=== PATIENT | male | born 1995 | race Caucasian/White ===

== ENCOUNTER 2022-06-08 11:19 | Emergency (ER) | payer BC ==
--- OUTSIDE RECORDS SUMMARY | 2022-06-08 11:23 | XMS REPORT | Continuity of Care Document ---
:[address] [facility] t Address [address] [facility] [address] [place] [address] Care Team Providers Name Role Phone DELORES CARO Primary Care Physician Unavailable DELORES CARO Attending Clinician Unavailable ADALI SHABAZZ Attending Clinician Unavailable JOHN MUHAMMAD Attending Clinician Unavailable John Muhammad MD Attending Clinician Delores Andrews Attending Clinician Lab, Ang - Db Attending Clinician Unavailable Doctor Unassigned, [place] Attending Clinician Unavailable Sandy KELLER Attending Clinician Unavailable Sandy Clifford Attending Clinician Payers Payer Name Policy Type Policy Number Effective Date Expiration Date S [facility] - [id number] 2021 00:00:00 OUT OF STATE Problems Condition Condition Condition Status Onset Resolution Last Treating Co mments Source Name Details Category Date Date Treatment Clinician Date Vitamin D Vitamin D Disease Active Uni vers deficiency deficiency 1-25 it y of 00:00: [address] History of History of Disease Active U nivers pilonidal pilonidal 5-30 ity of cyst cyst 00:00: [address] Leukocytos Leukocytos Disease Active U nivers is is 5-30 ity of 00:00: [address] Obesity Obesity Disease Recurre Univer s nce 5-30 ity of 00:00: [place] 00 [facility] Seasonal Seasonal Disease Active Unive rs allergies allergies ity of [place] [facility] Allergies, Adverse Reactions, Alerts Allergy Allergy Status Severity Reaction(s) Onset Inactive Treating Comm ents Source Name Type Date Date Clinician FENTANYL DRUG Active N/V Univers INGREDI 4- ity of 00:00: [place] 00 [facility] [place] Fentanyl Propensi Active Nausea Univer s ty to and/or 06-06 ity of adverse Vomiting 00:00: [place] reaction 00 Medical s Branch NO KNOWN Drug Active Univers ALLERGIE Class ity of S [facility] Social History Social Habit Start Date Stop Date Quantity Comments Source History of tobacco Cigarette Smoker University of use [place] [facility] Alcohol intake 2022-06-06 2022-06-06 0 /d University of 00:00:00 00:00:00 [facility] Exposure to 2022-03-22 2022-04-01 Not sure [facility] SARS-CoV-2 (event) 00:00:00 08:01:00 [facility] Tobacco use and 2022-03-04 2022-03-04 Smokeless Universit y of exposure 00:00:00 00:00:00 tobacco non-user [facility] dical [place] Tobacco Comment 2022-03-04 2022-03-04 Switching from [facility] rsity of 00:00:00 00:00:00 cigaret to [facility] vaping Branch Cigarettes smoked 2022-03-04 2022-03-04 Univers ity of current (pack per 00:00:00 00:00:00 ) - Reported Branch Cigarette 2022-03-04 2022-03-04 University of pack-years 00:00:00 00:00:00 [facility] Alcohol Comment 2016-11-02 2016-11-02 occasional/ once Uni versity of 00:00:00 00:00:00 a month [facility] Sex Ass[birth year] At [birth year] Universit y of 00:00:00 00:00:00 [facility] Smoking Status Start Date Stop Date Source Smokes tobacco daily 2022-03-04 00:00:00 Univers ity of [facility] Occasional tobacco smoker 2016-11-02 00:00:00 Un iversity of [place] [facility] Medications Ordered Filled Start Stop Current Ordering Indication Dosage Frequency Signature Comments Components Source Medication Medication Date Date Medication? Clinician (SIG) Name Name iopamidol 2022- No [id number] 90mL 90 mL, Univers (ISOVUE 06-06 Intravenou ity o f 370-500 mL) 19:10: 19:30 s, ONCE, 1 [place] injection 00 :00 dose, On Medica l 90 mL Sat Branch 06/06/22 at 1430, Routine maalox:diph 2022- No 15mL 15 mL, Uni vers enhydrAMINE 06-06 Oral, ity of :lidocaine 19:00: 18:59 ONCE, 1 [place] as 2 % viscous 00 :00 dose, On Medi gerard 1:1:1 Sat Branch ([facility] 06/06/22 at [facility]) 1400, oral Routine suspension 15 mL pantoprazol Yes [id number] 40mg Take 1 Univers e 4-29 tablet by ity of (PROTONIX) 00:00: mouth in [place] as 40 mg EC 00 the Medical tablet morning. Branch traMADoL Yes [id number] 50mg Take 1 Univers (ULTRAM) 50 4-29 tablet by ity of mg tablet 00:00: mouth [place] 00 every 6 Medical (six) Branch hours as needed for Pain (scale 7-10). Indication s: acute pain SERTraline Yes [id number] Take 1 tab Univers (ZOLOFT) 50 2-22 po daily ity of mg tablet 00:00: [place] 00 Medical Branch SERTraline Yes [id number] Take 1 tab Univers (ZOLOFT) 50 2-22 po daily ity of mg tablet 00:00: [place] 00 Medical Branch SERTraline Yes [id number] Take 1 tab Univers (ZOLOFT) 50 2-22 po daily ity of mg tablet 00:00: [place] [facility] SERTraline Yes [id number] Take 1/2 Univers (ZOLOFT) 50 1-25 tab po ity of mg tablet 00:00: daily x 1 [place] 00 week. Then Medical go to 1 Branch tab po daily. Avoid abrupt cessation. SERTraline Yes [id number] Take 1/2 Univers (ZOLOFT) 50 1-25 tab po ity of mg tablet 00:00: daily x 1 [place] 00 week. Then Medical go to 1 Branch tab po daily. Avoid abrupt cessation. SERTraline Yes [id number] Take 1/2 Univers (ZOLOFT) 50 1-25 tab po ity of mg tablet 00:00: daily x 1 [place] 00 week. Then Medical go to 1 Branch tab po daily. Avoid abrupt cessation. SERTraline 2022- No [id number] Take 1/2 Univers (ZOLOFT) 50 -04 04-22 tab po ity o f mg tablet 00:00: 00:00 [place] 1 [place] week. Then Medical go to 1 Branch tab po daily. Avoid abrupt cessation. SERTraline 2022- No [id number] Take 1/2 Univers (ZOLOFT) 50 -04 04- tab po ity o f mg tablet 00:00: 00:00 [place] x 1 [place] :[place] week. Then Medical go to 1 Branch tab po daily. Avoid abrupt cessation. cefdinir 2021-02- No [id number] 300mg Take 1 U nivers 300 mg 02-14 11-15 capsule by ity of capsule 00:00: 05:59 mouth [place] 00 :00 every 12 Medical (twelve) Branch hours for 7 days. sulfamethox 2017-02 Yes 1{tbl} Take 1 Un [place] azole-trime 0-30 tablet by ity of thoprim 00:00: mouth [place] 800-160 mg 00 every 12 Medic al per tablet (twelve) Branc h hours. clindamycin 2017-02 Yes 300mg Take 1 Uni vers 300 mg 0-30 capsule by ity of capsule 00:00: mouth 4 [place] 00 (four) Medical times Branch daily. acetaminoph 2017-02 Yes 1{tbl} Take 1 Un [place] en-codeine 0-30 tablet by ity of 300-30 mg 00:00: mouth [place] tablet 00 every 4 Medical (four) Branch hours as needed for Pain (scale 4-6). sulfamethox 2017-02 Yes 1{tbl} Take 1 Un [place] azole-trime 0-30 tablet by ity of thoprim 00:00: mouth [place] 800-160 mg 00 every 12 Medic al per tablet (twelve) Branc h hours. clindamycin 2017-02 Yes 300mg Take 1 Uni vers 300 mg 0-30 capsule by ity of capsule 00:00: mouth 4 [place] 00 (four) Medical times Branch daily. acetaminoph 2017-02 Yes 1{tbl} Take 1 Un [place] en-codeine 0-30 tablet by ity of 300-30 mg 00:00: mouth [place] tablet 00 every 4 Medical (four) Branch hours as needed for Pain (scale 4-6). acetaminoph 2017-02- No 1{tbl} Take 1 U nivers en-codeine 0-30 01-25 tablet by ity of 300-30 mg 00:00: 00:00 mouth [place] tablet 00 :00 every 4 Medical (four) Branch hours as needed for Pain (scale 4-6). sulfamethox 2017-02- No 1{tbl} Take 1 U nivers azole-trime 0-30 01-25 tablet by it y of thoprim 00:00: 00:00 mouth [place] 800-160 mg 00 :00 every 12 Medic al per tablet (twelve) Branc h hours. clindamycin 2017-02- No 300mg Take 1 Un [place] 300 mg 0-30 01-25 capsule by ity of capsule 00:00: 00:00 mouth 4 [place] 00 :00 (four) Medical times Branch daily. acetaminoph 2017-02- No 1{tbl} Take 1 U nivers en-codeine 0-30 01-25 tablet by ity of 300-30 mg 00:00: 00:00 mouth [place] tablet 00 :00 every 4 Medical (four) Branch hours as needed for Pain (scale 4-6). sulfamethox 2017-02- No 1{tbl} Take 1 U nivers azole-trime 0-30 01-25 tablet by it y of thoprim 00:00: 00:00 mouth [place] 800-160 mg 00 :00 every 12 Medic al per tablet (twelve) Branc h hours. clindamycin 2017-02- No 300mg Take 1 Un [place] 300 mg 0-30 01-25 capsule by ity of capsule 00:00: 00:00 mouth 4 [place] 00 :00 (four) Medical times Branch daily. albuterol 2016-02 Yes 2{puff} Inhale 2 U nivers 90 2-06 Puffs ity of mcg/actuati 00:00: every 4 [place] as on inhaler 00 (four) Medical hours as Branch needed for Wheezing, Shortness of Breath, Bronchospa sm or Chest tightness. albuterol 2016-02 Yes 2{puff} Inhale 2 U nivers 90 2-06 Puffs ity of mcg/actuati 00:00: every 4 [place] on inhaler 00 (four) Medical hours as Branch needed for Wheezing, Shortness of Breath, Bronchospa sm or Chest tightness. benzonatate 2016-02 Yes 200mg Take 1 Uni vers 200 mg 2-06 capsule by ity of capsule 00:00: mouth 3 (three) Medical times Branch daily as needed for Cough. albuterol 2016-02 Yes 2{puff} Inhale 2 U nivers 90 2-06 Puffs ity of mcg/actuati 00:00: every 4 [place] on inhaler 00 (four) Medical hours as Branch needed for Wheezing, Shortness of Breath, Bronchospa sm or Chest tightness. benzonatate 2016-02 Yes 200mg Take 1 Uni vers 200 mg 2-06 capsule by ity of capsule 00:00: mouth 3 (three) Medical times Branch daily as needed for Cough. albuterol 2016-02 Yes 2{puff} Inhale 2 U nivers 90 2-06 Puffs ity of mcg/actuati 00:00: every 4 [place] on inhaler 00 (four) Medical hours as Branch needed for Wheezing, Shortness of Breath, Bronchospa sm or Chest tightness. albuterol 2016-02 Yes 2{puff} Inhale 2 U nivers 90 2-06 Puffs ity of mcg/actuati 00:00: every 4 [place] on inhaler 00 (four) Medical hours as Branch needed for Wheezing, Shortness of Breath, Bronchospa sm or Chest tightness. albuterol 2016-02 Yes 2{puff} Inhale 2 U nivers 90 2-06 Puffs ity of mcg/actuati 00:00: every 4 [place] on inhaler 00 (four) Medical hours as Branch needed for Wheezing, Shortness of Breath, Bronchospa sm or Chest tightness. albuterol 2016-02 Yes 2{puff} Inhale 2 U nivers 90 2-06 Puffs ity of mcg/actuati 00:00: every 4 [place] on inhaler 00 (four) Medical hours as Branch needed for Wheezing, Shortness of Breath, Bronchospa sm or Chest tightness. albuterol 2016-02 Yes 2{puff} Inhale 2 U nivers 90 2-06 Puffs ity of mcg/actuati 00:00: every 4 [place] as on inhaler 00 (four) Medical hours as Branch needed for Wheezing, Shortness of Breath, Bronchospa sm or Chest tightness. benzonatate 2016-02- No 200mg Take 1 Un [place] 200 mg 03-16 capsule by ity of capsule 00:00: 00:00 mouth 3 [place] 00 :00 (three) Medical times Branch daily as needed for Cough. benzonatate 2016-02 No 200mg Take 1 Un [place] 200 mg 03-16 capsule by ity of capsule 00:00: 00:00 mouth 3 [place] 00 :00 (three) Medical times Branch daily as needed for Cough. Immunizations Ordered Filled Immunization Date Status Comments [facility] e Immunization Name Name TDAP 2020-10-21 Completed University of 00:00:00 [facility] TDAP 2020-10-21 Completed University of 00:00:00 [facility] TDAP 2020-10-21 Completed University of 00:00:00 [facility] TDAP 2020-10-21 Completed University of 00:00:00 [facility] TDAP 2020-10-21 Completed University of 00:00:00 [facility] TDAP 2020-10-21 Completed University of 00:00:00 [facility] Influenza Virus 2016-11-02 Completed Universit y of Vaccine Quad IM 00:00:00 [place] Med ical Multi-dose 6+ MO Branch Influenza Virus 2016-11-02 Completed Universit y of Vaccine [place] IM 00:00:00 [place] Med ical Multi-dose 6+ MO Branch Influenza Virus 2016-11-02 Completed Universit y of Vaccine [place] IM 00:00:00 [place] Med ical Multi-dose 6+ MO Branch Influenza Virus 2016-11-02 Completed Universit y of Vaccine [place] IM 00:00:00 [place] Med ical Multi-dose 6+ MO Branch Influenza Virus 2016-11-02 Completed Universit y of Vaccine [place] IM 00:00:00 [place] Med ical Multi-dose 6+ MO Branch Influenza Virus 2016-11-02 Completed Universit y of Vaccine [place] IM 00:00:00 [place] Med ical Multi-dose 6+ MO Branch Influenza Virus 2016-11-02 Completed Universit y of Vaccine [place] IM 00:00:00 [place] Med ical Multi-dose 6+ MO Branch Influenza Virus 2016-11-02 Completed Universit y of Vaccine [place] IM 00:00:00 [place] Med ical Multi-dose 6+ MO Branch Vital Signs Vital Name Observation Time Observation Value Comments Source Systolic blood 2022-06-06 21:00:32 116 mm[Hg] Univer sity of pressure [facility] Diastolic blood 2022-06-06 21:00:32 80 mm[Hg] Unive rsity of pressure [facility] Heart rate 2022-06-06 21:00:32 72 /min Universi ty of [facility] Respiratory rate 2022-06-06 21:00:32 16 /min Univ ersity of [facility] Oxygen saturation in 2022-06-06 21:00:32 97 /min [facility] Arterial blood by [facility] Pulse oximetry Branch Body temperature 2022-06-06 17:12:00 37.22 Berenice Univ ersity of [facility] Body height 2022-06-06 17:12:00 180.3 cm Universi ty of [facility] Body weight 2022-06-06 17:12:00 119.296 kg Universi ty of [facility] BMI 2022-06-06 17:12:00 36.68 kg/m2 Universi ty of [facility] Branch Systolic blood 2022-04-01 14:12:00 115 mm[Hg] Univer sity of pressure [facility] Diastolic blood 2022-04-01 14:12:00 77 mm[Hg] Unive rsity of pressure [facility] Heart rate 2022-04-01 14:12:00 73 /min Universi ty of [facility] Body height 2022-04-01 14:12:00 180.3 cm Universi ty of [facility] Body weight 2022-04-01 14:12:00 112.492 kg Universi ty of [facility] BMI 2022-04-01 14:12:00 34.59 kg/m2 Universi ty of [facility] Oxygen saturation in 2022-04-01 14:12:00 98 /min University of Arterial blood by [facility] Pulse oximetry Branch Systolic blood 2022-03-04 15:42:00 120 mm[Hg] Univer sity of pressure [place] [facility] Diastolic blood 2022-03-04 15:42:00 82 mm[Hg] Unive rsity of pressure [facility] Heart rate 2022-03-04 15:42:00 61 /min Universi ty of [facility] Body temperature 2022-03-04 15:42:00 36.83 Berenice Univ ersity of [place] [facility] [place] Body height 2022-03-04 15:42:00 180.3 cm Universi ty of [place] [facility] Body weight 2022-03-04 15:42:00 116.121 kg Universi ty of [place] [facility] [place] BMI 2022-03-04 15:42:00 35.70 kg/m2 Universi ty of [facility] Oxygen saturation in 2022-03-04 15:42:00 98 /min University of Arterial blood by [facility] Pulse oximetry Branch Systolic blood 2021-12-15 15:33:00 131 mm[Hg] Univer sity of pressure [place] [facility] Diastolic blood 2021-12-15 15:33:00 83 mm[Hg] Unive rsity of pressure [place] [facility] [place] Heart rate 2021-12-15 15:33:00 92 /min Universi ty of [place] [facility] [place] Body temperature 2021-12-15 15:33:00 36.44 Berenice Univ ersity of [facility] Respiratory rate 2021-12-15 15:33:00 18 /min Univ ersity of [facility] Body height 2021-12-15 15:33:00 177.8 cm Universi ty of [place] [facility] Body weight 2021-12-15 15:33:00 113.399 kg Universi ty of [place] [facility] BMI 2021-12-15 15:33:00 35.87 kg/m2 Universi ty of [place] [facility] Oxygen saturation in 2021-12-15 15:33:00 99 /min University of Arterial blood by [facility] Pulse oximetry Branch Procedures Procedure Date / Time Performed Performing Clinician Sourc e URINALYSIS 2022-06-06 19:55:00 John Muhammad [facility] CT ABDOMEN PELVIS W 2022-06-06 19:15:27 John Muhammad [facility] CONTRAST [facility] CBC WITH DIFF 2022-06-06 18:13:00 John Muhammad [facility] LIPASE 2022-06-06 17:44:00 John Muhammad [facility] COMP. METABOLIC PANEL 2022-06-06 17:44:00 John Muhammad [facility] ([id number]) [facility] CONSENT/REFUSAL FOR 2022-06-06 17:07:33 Doctor Unassigned, No [facility] Name [facility] TREATMENT ASSIGNMENT OF BENEFITS 2022-03-04 15:07:54 Doctor Unassigned, No [facility] CONSENT/REFUSAL FOR 2021-12-15 15:30:16 [facility], [facility] TREATMENT Encounters Start End Encounter Admission Attending Care Care Encounter Source Date/Time Date/Time Type Type Clinicians Facility Department ID 2022-06-08 2022-06-08 Emergency X [facility] ERT [id number] Univers 10:57:00 10:57:00 , ADALI [facility] 2022-06-06 2022-06-06 Emergency X [facility] ERT [id number] Univers 12:13:00 16:05:00 JOHN [facility] 2022-06-06 2022-06-06 Emergency [facility] [id number] Univers 12:13:00 16:05:00 John Eric [place] [id number] [facility] 4.2.7.2.686 [facility] [id number] [facility] 084 Branch 2022-06-03 2022-06-03 Outpatient R LYNN [facility] [id number] Univers 15:30:00 15:30:00 [facility] 2022-04-01 Outpatient R LYNN [facility] [id number] Univers 08:30:00 09:03:00 DELORES [facility] 2022-04-01 2022-04-01 [facility] [id number] Univers 08:30:00 09:00:00 Visit Delores Tse HEALTH [id number] i ty of [facility] [place] 4.2.7.2.686 [place] as RICHARD?BLEA [id number] [facility] [address] [facility] OFFICE [facility] 2022-03-04 2022-03-04 Payroll Assistant Lab, Ang - Db [facility] [id number] Univers 11:00:00 11:15:00 Visit Delores Caro HEALTH [id number] ity of [place] 4.2.7.2.686 [place] as RICHARD?BLEA [id number] [facility] [address] OFFICE [facility] 2022-03-04 2022-03-04 [facility] [id number] Univers 10:00:00 10:24:12 DELORES ity of [facility] 2022-03-04 2022-03-04 [facility] [id number] Univers 10:00:00 10:24:12 Visit Delores Tse [facility] [id number] i ty of [place] 4.2.7.2.686 [place] as RICHARD?BLEA [id number] [address] OFFICE [facility] 2022-03-04 2022-03-04 Orders Doctor JAZMYN [id number] Univers 00:00:00 00:00:00 Only Unassigned, IRMA 350.1.13.10 ity of [place] [facility] 4.2.7.2.686 [place] as [id number] [address] 2021-12-15 2021-12-15 Emergency X ARIANNA, K [facility] ERT [id number] Univers 09:34:00 10:32:00 ity of [facility] 2021-12-15 2021-12-15 Emergency Sandy Keller [facility] [id number] Univers 09:34:00 10:32:00 Yolanda DANDRE 350.1.13.10 i ty of [facility] 4.2.7.2.686 [place] [facility] [id number] [facility] 084 Branch Results Test Description Test Time Test Comments Results Result Comments Source CBC WITH DIFF 2022-06-06 18:59:43 Test Item Value Reference Range Interpretation Comme nts WBC (test code = 6690-2) 13.67 See_Comment H [A utomated message] The system which ge nerated this result transmit jocelynn reference range: 4.20 - 1 0.70 10*3/?L. The reference r christianne was not used to interpr et this result as normal/abnor mal. RBC (test code = 789-8) 5.19 See_Comment [Au tomated message] The system which ge nerated this result transmit jocelynn reference range: 4.26 - 5 .52 10*6/?L. The reference r christianne was not used to interpr et this result as normal/abnor mal. HGB (test code = 718-7) 15.7 g/dL 12.2-16.4 HCT (test code = 4544-3) 44.0 % 38.4-49.3 MCV (test code = 787-2) 84.8 fL 81.7-95.6 MCH (test code = 785-6) 30.3 pg 26.1-32.7 MCHC (test code = 786-4) 35.7 g/dL 31.2-35.0 H RDW-SD (test code = 82439-8) 37.2 fL 38.5-51.6 L RDW-CV (test code = 788-0) 12.1 % 12.1-15.4 PLT (test code = 777-3) 306 See_Comment [Au tomated message] The system which ge nerated this result transmit jocelynn reference range: 150 - 32 8 10*3/?L. The reference range was not used to interpret th is result as normal/abnormal . MPV (test code = 56955-7) 9.4 fL 9.8-13.0 L NRBC/100 WBC (test code = 0.0 See_Comment [ Automated message] The [id number]) system which ge nerated this result transmit jocelynn reference range: 0.0 - 10 .0 /100 WBCs. The reference r christianne was not used to interpr et this result as normal/abnor mal. NRBC x10^3 (test code = See_Comment [Au tomated message] The [id number]) system which ge nerated this result transmit jocelynn reference range: 10*3/?L. The reference range was not u sed to interpret this result as normal/abnormal . GRAN MAT (NEUT) % (test code 63.4 % = 770-8) IMM GRAN % (test code = 0.50 % 1100586658) LYMPH % (test code = 736-9) 16.9 % MONO % (test code = 5905-5) 5.7 % EOS % (test code = 713-8) 12.9 % BASO % (test code = 706-2) 0.6 % GRAN MAT x10^3(ANC) (test 8.67 10*3/uL 1.99-6.95 H code = 8986404948) IMM GRAN x10^3 (test code = 0.07 10*3/uL 0.00-0.06 H 0764535406) LYMPH x10^3 (test code = 2.31 10*3/uL 1.09-3.23 731-0) MONO x10^3 (test code = 0.78 10*3/uL 0.36-1.02 742-7) EOS x10^3 (test code = 1.76 10*3/uL 0.06-0.53 H 711-2) BASO x10^3 (test code = 0.08 10*3/uL 0.01-0.09 704-7) Lab Interpretation (test Abnormal code = 24976-9) [facility]. METABOLIC PANEL ([id number])2022-06-06 18:11:01 Test Item Value Reference Range Interpretation Comments NA (test code = 138 mmol/L 135-145 7245331754) K (test code = 5.3 mmol/L 3.5-5.0 H 6561866677) CL (test code = 110 mmol/L 98-108 H 6252315708) CO2 TOTAL (test code = 26 mmol/L 23-31 0283659281) AGAP (test code = 2 2-16 3365819312) BUN (test code = 8 mg/dL 7-23 5948179705) GLUCOSE (test code = 101 mg/dL 70-110 1966245359) CREATININE (test code = 0.66 mg/dL 0.60-1.25 8624978894) TOTAL BILI (test code = 0.6 mg/dL 0.1-1.2 2961029236) CALCIUM (test code = 9.3 mg/dL 8.6-10.6 6663617753) T PROTEIN (test code = 6.7 g/dL 6.3-8.2 6824233645) ALBUMIN (test code = 4.2 g/dL 3.5-5.0 8744242128) ALK PHOS (test code = 73 U/L 34-122 2827734939) ALTv (test code = 25 U/L 5-50 1742-6) AST(SGOT) (test code = 25 U/L 13-40 9513919500) eGFR (test code = 145.9 mL/min/1.73m2 1299146328) HAMIDA (test code = HAMIDA) Association of Glomerular Filtration Rate (GFR) and Staging of Kidney Disease* + --+ --+ ------+| GFR (mL/min/1.73 m2) ?| With Kidney Damage ?| ?Without Kidney Damage+ --------+ --------+ +| ?>90 ?| ?Stage one ?| ? Normal ?+ ---+ ---+ -------+| ?60-89 ?| ?Stage two ?| ? Decreased GFR ? + --+ --+ ------+| ?30-59 ?| ?Stage three ?| ? Stage three ? + --+ --+ ------+| ?15-29 ?| ?Stage four ? | ? Stage four ?+ ---+ ---+ -------+| ?<15 (or dialysis) ? ?| ?Stage five ? | ? Stage five ?+ ---+ ---+ -------+ *Each stage assumes the associated GFR level has been in effect for at least three months. ?Stages 1 to 5, with or without kidney disease, indicate chronic kidney disease. Notes: Determination of stages one and two (with eGFR >59mL/min/1.73 m2) requires estimation of kidney damage for at least three months as defined by structural or functional abnormalities of the kidney, manifested by either:Pathological abnormalities or Markers of kidney damage (including abnormalities in the composition of the blood or urine or abnormalities in imaging tests). Lab Interpretation Abnormal (test code = 43009-3) [facility]20 Test Item Value Reference Range Interpretation Comments LIPASE (test code = 7978528112) 36 U/L 0-220 Lab Interpretation (test code = Normal 87586-4) [facility]"
--- NOTE | 2022-06-08 11:59 | RAD REPORT ---
EXAM DESCRIPTION: US - Abdomen Exam Limited - 06/08/2022 11:45 am CLINICAL HISTORY: ABD PAIN COMPARISON: CT ABD PELVIS W CONTRAST dated 12/24/2008 FINDINGS: The gallbladder demonstrates no gallstones. No pericholecystic fluid or gallbladder wall t hickening. The common bile duct is normal measuring 4 mm. The liver demonstrates no findings of intrahepatic biliary dilatation. IMPRESSION: Negative for cholelithiasis or acute cholecystitis. No biliary ductal dilatation.
[2022-06-08] MEDS ORDERED: KETOROLAC 30 MG/ML INJ ONE (12:05)
[2022-06-08] MEDS ORDERED: FAMOTIDINE 20 MG/2 ML VIAL IV ONE (12:05)
[2022-06-08] MEDS ORDERED: ONDANSETRON 4 MG/2 ML VIAL ONE (12:05)
[2022-06-08] MEDS ORDERED: NA CHLORIDE 0.9% 1,000 ML ONE (12:05)
[2022-06-08 12:40] LABS: Absolute Lymphocytes (CBC) 2.6 K/uL (0.7-4.9); Hematocrit 42.1 % (39.6-49.0); Lymphocytes % 23.6 % (15.3-44.8); MCV 86.4 fL (80-100); MPV 7.4 fL (7.6-11.3); RBC Red Blood Cell Count 4.88 M/uL (4.33-5.43)
[2022-06-08 12:57] LABS: Albumin 3.5 g/dL (3.4-5.0); Bilirubin Total 0.3 mg/dL (0.2-1.0); Protein, Total 6.9 g/dL (6.4-8.2)
--- NOTE | 2022-06-08 14:17 | ER ---
Nurse's Notes [facility] Name: Shon Solo Age: 26 yrs Sex: Male : 1995 Arrival Date: 06/08/2022 Time: 11:19 Bed 19 Private MD: Diagnosis: Upper abdominal pain, unspecified;Nausea with vomiting, unspecified Presentation: 06/08 11:34 Chief complaint: Patient states: Upper abdomen pain with N/V/D for 4-5 days. No fever. ll1 Had blood in vomit Wednesday and Wednesday. Coronavirus screen: Client denies travel out of the [place] in the last 14 days. At this time, the client does not indicate any symptoms associated with coronavirus-19. Ebola Screen: Patient denies travel to an Ebola-affected area in the 21 days before illness onset. Initial Sepsis Screen: Does the patient meet any 2 criteria? No. Patient's initial sepsis screen is negative. Does the patient have a suspected source of infection? Yes: Acute abdominal pain. Risk Assessment: Do you want to hurt yourself or someone else? Patient reports no desire to harm self or others. Onset of symptoms was June 03, 2022. 11:34 Method Of Arrival: Ambulatory ll1 11:34 Acuity: REGINALDO 3 ll1 Triage Assessment: 11:36 General: Appears uncomfortable, Behavior is calm, cooperative, appropriate for age. ll1 Pain: Complains of pain in upper abdomen Quality of pain is described as aching. GI: Reports upper abdominal pain, bloating, diarrhea, nausea, vomiting. Historical: - Allergies: 11:33 Fentanyl; ll1 11:34 Wasps; ll1 - PMHx: 11:33 Anxiety; ll1 - PSHx: 11:33 Appendectomy; ll1 - Immunization history:: Client reports receiving the 2nd dose of the Covid vaccine. - Social history:: Smoking status: Patient reports the use of cigarette tobacco products, smokes one-half pack cigarettes per day, Reported history of juuling and/or vaping. Screenin:37 [facility] ED Fall Risk Assessment (Adult) History of falling in the last 3 months, kc6 including since admission No falls in past 3 months (0 pts) Confusion or Disorientation No (0 pts) Intoxicated or Sedated No (0 pts) Impaired Gait No (0 pts) Mobility Assist Device Used No (0 pt) Altered Elimination No (0 pt) Score/Fall Risk Level 0 - 2 = Low Risk Oriented to surroundings, Maintained a safe environment, Educated pt \T\ family on fall prevention, incl call for assistance when getting out of bed, Assessed \T\ reinforced patient's understanding of fall precautions, Hourly rounding (assess needs \T\ fall precautionary measures) done. Abuse screen: Denies threats or abuse. Denies injuries from another. Nutritional screening: No deficits noted. Tuberculosis screening: No symptoms or risk factors identified. Assessment: 12:36 General: Appears in no apparent distress. comfortable, Behavior is calm, cooperative, kc6 appropriate for age. Pain: Complains of pain in epigastric area Pain does not radiate. Pain currently is 7 out of 10 on a pain scale. Neuro: Lindquist Agitation-Sedation Scale (RASS): 0 - Alert and Calm Level of Consciousness is awake, alert, obeys commands, Oriented to person, place, time, situation, Appropriate for age. Cardiovascular: Capillary refill < 3 seconds. Respiratory: Airway is patent Trachea midline Respiratory effort is even, unlabored, Respiratory pattern is regular, symmetrical. GI: Abdomen is flat, non-distended, Bowel sounds present X 4 quads. Abd is soft X 4 quads Abdomen is tender to palpation in epigastric area Reports diarrhea, nausea, vomiting. : No signs and/or symptoms were reported regarding the genitourinary system. EENT: No signs and/or symptoms were reported regarding the EENT system. Derm: No signs and/or symptoms reported regarding the dermatologic system. Skin is intact, Skin is pink, warm \T\ dry. Musculoskeletal: No signs and/or symptoms reported regarding the musculoskeletal system. Circulation, motion, and sensation intact. Capillary refill < 3 seconds, Range of motion: intact in all extremities. 13:34 Reassessment: Patient appears in no apparent distress at this time. No changes from kc6 previously documented assessment. Patient and/or family updated on plan of care and expected duration. Pain level reassessed. Patient is alert, oriented x 3, equal unlabored respirations, skin warm/dry/pink. 14:34 Reassessment: Patient appears in no apparent distress at this time. No changes from kc6 previously documented assessment. Patient and/or family updated on plan of care and expected duration. Pain level reassessed. Patient is alert, oriented x 3, equal unlabored respirations, skin warm/dry/pink. Vital Signs: 11:34 BP 115 / 78; Pulse 72; Resp 17; Temp 98.2; Pulse Ox 99% ; Weight 119.75 kg; Height 5 ll1 ft. 11 in. ; Pain 6/10; 12:37 BP 106 / 66; Pulse 69; Resp 18 S; Pulse Ox 99% on R/A; Pain 7/10; kc6 13:34 BP 101 / 57; Pulse 65; Resp 17 S; Pulse Ox 99% on R/A; kc6 11:34 Body Mass Index 36.82 (119.75 kg, 180.34 cm) ll1 11:34 Pain Scale: Adult ll1 12:37 Pain Scale: Adult kc6 ED Course: 11:20 Patient arrived in ED. rg4 11:21 [facility]C [facility] kb 11:21 Keanu Lorenzo MD is Attending Physician. kb 11:36 Triage completed. ll1 11:37 Arm band placed on. ll1 11:46 US Abdomen Limited In Process Unspecified. EDMS 11:50 Marjorie Canseco, RN is Primary Nurse. kc6 12:10 Inserted saline lock: 22 gauge in right antecubital area, using aseptic technique. mb9 12:29 CBC with Diff Sent. mb9 12:29 CMP Sent. mb9 12:29 Lipase Sent. mb9 12:30 Placed in gown. Bed in low position. Call light in reach. Side rails up X 1. Client mb9 placed on continuous cardiac and pulse oximetry monitoring. NIBP monitoring applied. 14:54 No provider procedures requiring assistance completed. IV discontinued. kc6 Administered Medications: 12:10 Drug: NS 0.9% IV 1000 ml Route: IV; Rate: 1 bolus; Site: right antecubital; mb9 14:56 Follow up: Response: No adverse reaction; IV Status: Completed infusion; IV Intake: kc6 1000ml 12:12 Drug: Famotidine IVP 20 mg Route: IVP; Site: right antecubital; mb9 13:22 Follow up: Response: No adverse reaction kc6 12:15 Drug: Ondansetron IVP 4 mg Route: IVP; Site: right antecubital; mb9 13:21 Follow up: Response: No adverse reaction; Nausea is decreased kc6 12:20 Drug: Ketorolac IVP 15 mg Route: IVP; Site: right antecubital; mb9 13:22 Follow up: Response: No adverse reaction; Pain is decreased kc6 Medication: 14:55 VIS not applicable for this client. kc6 Intake: 14:56 IV: 1000ml; Total: 1000ml. kc6 Outcome: 14:16 Discharge ordered by MD. molina 14:54 Discharged to home ambulatory, with family, with significant other. kc6 14:54 Condition: stable 14:54 Discharge instructions given to patient, Instructed on discharge instructions, follow up and referral plans. medication usage, Demonstrated understanding of instructions, follow-up care, medications, Prescriptions given X 1. 14:56 Patient left the ED. kc6 Signatures: Dispatcher [employer] EDMS Kamla Brian, LIFTER-C LIFTER-Ivette Serrano rg4 Cesilia Underwood RN RN ll1 Marjorie Canseco RN RN kc6 Evelyn Cornejo, RN RN mb9 Corrections: (The following items were deleted from the chart) 11:34 11:33 Allergies: No Known Allergies; ll1 ll1
--- NOTE | 2022-06-08 14:17 | EDPHYS ---
Physician Documentation [facility] Name: Shon Solo Age: 26 yrs Sex: Male : 1995 Arrival Date: 06/08/2022 Time: 11:19 Bed 19 Private MD: ED Physician Keanu Lorenzo HPI: 06/08 12:41 This 26 yrs old Male presents to ER via Ambulatory with complaints of Abdominal Pain, kb Vomiting/Diarrhea. 12:41 The patient presents with abdominal pain. Onset: The symptoms/episode began/occurred 4 kb day(s) ago. The symptoms do not radiate. Associated signs and symptoms: Pertinent positives: nausea, vomiting, and diarrhea, Pertinent negatives: fever. The symptoms are described as constant. Modifying factors: The symptoms are alleviated by nothing, the symptoms are aggravated by nothing. Severity of pain: At its worst the pain was moderate in the emergency department the pain is unchanged. The patient has not experienced similar symptoms in the past. The patient has been recently seen by a physician: the ER physician, out of Town, 4 day(s) ago. 12:48 Pt reports upper abd pain, n/v/d for 4 days. Reports he was seen at [place] [facility] and had kb blood work and CT scan which looked ok so he was told to follow up with PCP and GI. States he is still unable to tolerate anything by mouth. Went back to [place] [facility] today and was told he just needed to follow up. Historical: - Allergies: 11:33 Fentanyl; ll1 11:34 Wasps; ll1 - PMHx: 11:33 Anxiety; ll1 - PSHx: 11:33 Appendectomy; ll1 - Immunization history:: Client reports receiving the 2nd dose of the Covid vaccine. - Social history:: Smoking status: Patient reports the use of cigarette tobacco products, smokes one-half pack cigarettes per day, Reported history of juuling and/or vaping. ROS: 12:40 Constitutional: Negative for fever, chills, and weight loss. kb 12:40 Abdomen/GI: Positive for abdominal pain, nausea, vomiting, and diarrhea. 12:40 All other systems are negative. Exam: 12:40 Constitutional: This is a well developed, well nourished patient who is awake, alert, kb and in no acute distress. Head/Face: Normocephalic, atraumatic. ENT: Moist Mucous membranes Cardiovascular: Regular rate and rhythm with a normal S1 and S2. No gallops, murmurs, or rubs. No pulse deficits. Respiratory: Respirations even and unlabored. No increased work of breathing. Talking in full sentences Skin: Warm, dry with normal turgor. Normal color. MS/ Extremity: Pulses equal, no cyanosis. Neurovascular intact. Full, normal range of motion. Neuro: Awake and alert, GCS 15, oriented to person, place, time, and situation. Moves all extremities. Normal gait. 12:40 Abdomen/GI: Inspection: abdomen appears normal, Bowel sounds: normal, Palpation: soft, in all quadrants, mild abdominal tenderness, in the epigastric area, right upper quadrant and left upper quadrant. Vital Signs: 11:34 BP 115 / 78; Pulse 72; Resp 17; Temp 98.2; Pulse Ox 99% ; Weight 119.75 kg; Height 5 ll1 ft. 11 in. ; Pain 6/10; 12:37 BP 106 / 66; Pulse 69; Resp 18 S; Pulse Ox 99% on R/A; Pain 7/10; kc6 13:34 BP 101 / 57; Pulse 65; Resp 17 S; Pulse Ox 99% on R/A; kc6 11:34 Body Mass Index 36.82 (119.75 kg, 180.34 cm) ll1 11:34 Pain Scale: Adult ll1 12:37 Pain Scale: Adult kc6 MDM: 11:21 Patient medically screened. kb 12:41 Differential diagnosis: cholecystitis, Cholelithiasis, gastritis, gastroesophageal kb reflux disease, non-specific abd pain, pancreatitis, Peptic Ulcer Disease. Data reviewed: vital signs, nurses notes. 14:15 Counseling: I had a detailed discussion with the patient and/or guardian regarding: the kb historical points, exam findings, and any diagnostic results supporting the discharge/admit diagnosis, lab results, radiology results, the need for outpatient follow up, a family practitioner, a system administration manager, to return to the emergency department if symptoms worsen or persist or if there are any questions or concerns that arise at home. ED course: Pt is feeling better and tolerating po intake. Educated to follow up with GI. Verbal understanding received. . 06/08 11:27 Order name: CBC with Diff; Complete Time: 14:30 kb 06/08 11:27 Order name: CMP; Complete Time: 12:58 kb 06/08 11:27 Order name: Lipase; Complete Time: 12:58 kb 06/08 14:22 Order name: Manual Differential; Complete Time: 14:30 EDMS 06/08 11:27 Order name: US Abdomen Limited; Complete Time: 12:05 kb 06/08 11:27 Order name: IV Saline Lock; Complete Time: 12:29 kb 06/08 11:27 Order name: Labs collected and sent; Complete Time: 12:29 kb 06/08 12:58 Order name: PO challenge; Complete Time: 13:21 kb Administered Medications: 12:10 Drug: NS 0.9% IV 1000 ml Route: IV; Rate: 1 bolus; Site: right antecubital; mb9 14:56 Follow up: Response: No adverse reaction; IV Status: Completed infusion; IV Intake: kc6 1000ml 12:12 Drug: Famotidine IVP 20 mg Route: IVP; Site: right antecubital; mb9 13:22 Follow up: Response: No adverse reaction kc6 12:15 Drug: Ondansetron IVP 4 mg Route: IVP; Site: right antecubital; mb9 13:21 Follow up: Response: No adverse reaction; Nausea is decreased kc6 12:20 Drug: Ketorolac IVP 15 mg Route: IVP; Site: right antecubital; mb9 13:22 Follow up: Response: No adverse reaction; Pain is decreased kc6 Disposition: 15:24 Co-signature as Attending Physician, Keanu Lorenzo MD I reviewed the patient's care rn provided by the Advanced Practice Provider and agree with the diagnosis and treatment plan. Disposition Summary: 06/08/22 14:16 Discharge Ordered Location: Home kb Condition: Stable kb Diagnosis - Upper abdominal pain, unspecified kb - Nausea with vomiting, unspecified kb Followup: kb - With: Emergency Department - When: As needed - Reason: Worsening of condition Followup: kb - With: Private Physician - When: 2 - 3 days - Reason: Recheck today's complaints, Continuance of care, Re-evaluation by your physician Discharge Instructions: - Discharge Summary Sheet kb - Nausea and Vomiting, Adult, [id number] kb - Abdominal Pain, Adult, [id number] kb Forms: - Medication Reconciliation Form kb - Thank You Letter kb - Antibiotic Education kb - Prescription Opioid Use kb Prescriptions: - ondansetron 4 mg Oral Tablet,disintegrating - take 1 tablet by ORAL route every 6 hours As needed; 15 tablet; Refills: 0, kb Product Selection Permitted Signatures: Dispatcher [employer] EDMS Kamla Brian, [employer] CONTR[employer] ROOM OPERATOR-Keanu Taylor MD MD rn Lewis, Lynsay, RN RN ll1 Evelyn Cornejo RN RN mb9 Marjorie Canseco RN kc6 Corrections: (The following items were deleted from the chart) 11:34 11:33 Allergies: No Known Allergies; ll1 ll1 14:22 12:50 CBC Smear Scan ordered. EDMS EDMS
[2022-06-08 14:21] LABS: Blood Morphology Comment NOT SEEN (NOT SEEN); Platelet Estimate ADEQ
[2022-06-08 15:15] VITALS: TEMP 98.2; O2SAT 99
[2022-06-08 15:22] VITALS: BP 101/57
== END 2022-06-08 14:56 | disposition home or self-care (01) ==
LOC: ER 11:19
DX: R10.13 Epigastric pain (principal); R11.2 Nausea with vomiting, unspecified; F17.210 Nicotine dependence, cigarettes, uncomplicated; Z88.5 Allergy status to narcotic agent; Z91.038 Other insect allergy status
CPT/HCPCS: 96361; 85025; 36415; 83690; 80053; 76705; 96375; 96374; 99284; J2405; J7030